=== PATIENT | female | born 1980 | race Two or more races ===

== ENCOUNTER 2017-11-19 21:31 | Emergency (ER) | payer SELFPAY ==
[~2017-11-19] VITALS: Ht 167.6 cm; Wt 102.1 kg
--- NOTE | 2017-11-19 21:53 | NUR ---
PT BIB [facility] 86 FOLLOWING INGESTION OF [employer] EDIBLES. PT NONRESPONSIVE TO PAINFUL STIMULI, BUT GAG REFLEXT PRESENT/PERRLA.
[2017-11-19 22:16] LABS: BASOPHILS # (AUTO) 0.1 K/uL (0.0-8.0); BASOPHILS % (AUTO) 0.6 % (0.0-2.0); EOSINOPHILS # (AUTO) 0.3 K/uL (0.0-0.7); EOSINOPHILS % (AUTO) 2.4 % (0.0-7.0); HEMATOCRIT 40.1 % (31.2-41.9); HEMOGLOBIN 13.9 g/dL (10.9-14.3); LYMPHOCYTES # (AUTO) 3.1 K/uL (20.0-40.0); LYMPHOCYTES % (AUTO) 29.8 % (20.5-51.5); MEAN CORPUSCULAR HEMOGLOBIN 29.6 uug (24.7-32.8); MEAN CORPUSCULAR HGB CONC 35 g/dL (32.3-35.6); MEAN CORPUSCULAR VOLUME 85.4 fL (75.5-95.3); MONOCYTES # (AUTO) 0.7 K/uL (2.0-10.0); MONOCYTES % (AUTO) 6.6 % (0.0-11.0); NEUTROPHILS # (AUTO) 6.3 K/uL (1.8-8.9); NEUTROPHILS % (AUTO) 60.6 % (38.5-71.5); PLATELET COUNT (AUTO) 327 K/uL (179-408); RED BLOOD CELL COUNT(AUTO) 4.69 MIL/uL (3.63-4.92); WHITE BLOOD COUNT (AUTO) 10.4 K/uL (3.8-11.8)
[2017-11-19 22:33] LABS: ALANINE AMINOTRANSFERASE 34 U/L (14-59); ALKALINE PHOSPHATASE 136 U/L (50-136); ASPARTATE AMINOTRANSFERASE 25 U/L (15-37); BILIRUBIN,DIRECT 0.1 mg/dL (0.0-0.2); BILIRUBIN,TOTAL 0.3 mg/dL (0.2-1.0); CARBON DIOXIDE 27 mmol/L (21-32); CHLORIDE 103 mmol/L (98-107); GLUCOSE 147 mg/dL (74-106); TOTAL PROTEIN, SERUM 7.6 g/dL (6.4-8.2); UREA NITROGEN, BLOOD 9 mg/dL (7-18)
[2017-11-19 22:34] LABS: POTASSIUM 2.6 mmol/L (3.5-5.1)
[2017-11-19 22:38] LABS: ACETAMINOPHEN < 2.0 ug/mL (10-30)
[2017-11-19 22:48] LABS: *BILIRUBIN,URIN NEGATIVE (NEGATIVE); *BLOOD, URINE 1+ (NEGATIVE); *CLARITY,URINE SLIGHTLY CLOUDY (CLEAR); *COLOR,URINE YELLOW (YELLOW); *KETONES,URINE 1+ (NEGATIVE); *PROTEIN,URINE TRACE (NEGATIVE); *UROBILINOGEN,URINE 0.2 E.U./dl (NORMAL); LEUKOCYTE ESTERASE ,URINE NEGATIVE (NEGATIVE); NITRITE, URINE NEGATIVE (NEGATIVE); UGLUCOSE NEGATIVE (NEGATIVE)
[2017-11-19 22:49] LABS: ETHANOL < 3 MG/DL (0-0)
--- NOTE | 2017-11-19 22:52 | NUR ---
XRAY AT PT BEDSIDE.
[2017-11-19 22:56] LABS: THYROID STIMULATING HORMONE 1.112 mIU/mL (0.358-3.740)
--- NOTE | 2017-11-19 23:00 | NUR ---
PT TAKEN DOWN TO CT BY IMPERSONATOR CHARACTER IN [facility]. VSS. NO DISTRESS NOTED.
[2017-11-19 23:02] LABS: *AMPHETAMINE, URINE NEGATIVE (NEGATIVE); *BARBITURATE, URINE NEGATIVE (NEGATIVE); *CANNABINOID, URINE POSITIVE (NEGATIVE); *COCCAINE, URINE NEGATIVE (NEGATIVE); *OPIATE, URINE NEGATIVE (NEGATIVE); *PHENCYCLIDINE SCREEN,URINE NEGATIVE (NEGATIVE)
[2017-11-19 23:11] LABS: BACTERIA,URINE MODERATE /HPF (NONE SEEN); WBC,URINE 0-3 /HPF (0-3)
[2017-11-19 23:12] LABS: MUCUS,URINE MANY /LPF (0-FEW); SQUAMOUS EPITHELIAL CELL,UR MANY /HPF (NONE SEEN)
--- NOTE | 2017-11-19 23:36 | NUR ---
PT REMAINS UNCONSCIOUS, BUT RESPONDS TO PAINFUL STIMULI. VSS. NO ACUTE DISTRESS NOTED.
--- NOTE | 2017-11-20 00:03 | NUR ---
LAB AT PT BEDSIDE
--- NOTE | 2017-11-20 00:47 | NUR ---
PT AWAKE AND RESPONSIVE. ANSWERS QUESTIONS APPROPRIATELY. REPORTS TAKING ONE EDIBLE, BUT UNSURE OF THE STRENGTH/CONCENTRATION, WELL REPORTS SMOKING "VAPOR"
[2017-11-20] MEDS ORDERED: IV NORMAL SALINE 1000 ML BAG IV ONE (01:15)
--- NOTE | 2017-11-20 01:58 | NUR ---
PT RESTING IN A POSITION OF COMFORT W/ EYES CLOSED. AROUSABLE TO VERBAL STIMULI. NO SIGNS OF DISTRESS NOTED AT THIS TIME. VSS.
--- NOTE | 2017-11-20 03:01 | NUR ---
PT RESTING IN A POSITION OF COMFORT W/ EYES CLOSED. AROUSABLE TO VERBAL STIMULI. NO SIGNS OF DISTRESS NOTED AT THIS TIME. VSS.
--- NOTE | 2017-11-20 04:35 | NUR ---
DAUGHTER AT PT BEDSIDE.
[2017-11-20 06:58] VITALS: BP 124/86
--- NOTE | 2017-11-20 07:09 | NUR ---
Patient discharged to home in stable conditon. Written and verbal after care instructions given. Patient verbalizes understanding of instructions. Pt took all personal belongings.
== END 2017-11-20 07:10 | disposition home or self-care (01) ==
LOC: ER 21:32
DX: T40.7X1A Poisoning by cannabis (derivatives), accidental (unintentional), initial encounter (principal); Y92.89 Other specified places as the place of occurrence of the external cause
CPT/HCPCS: 36415; 70030-TC; 70450; 71045; 80307; 83605; 84443; 84703; 85025; 85730; 87040; 87086; 93005; A4663; G0480; G0480-TC; J7030